=== PATIENT | female | born 1950 | race Caucasian/White ===

== ENCOUNTER → 2018-02-19 | Outpatient (CLI) | payer MEDICARE, OTHER ==
--- NOTE | 2018-02-20 09:20 | MR ---
EXAMINATION TYPE: MR lumbar spine wo con DATE OF EXAM: 02/19/2018 COMPARISON: Prior lumbar MRI 01/25/2013 HISTORY: Back pain, lumbar degenerative disc disease TECHNIQUE: Multiplanar, multisequence images of the lumbar spine were acquired. L1-L2: Posterior extension of endplate disc complex causes anterior mass effect on the thecal sac, mi ld to moderate central stenosis. L2-L3: Mild spinal stenosis due to posterior circumferential extension of endplate disc complex, bila teral foraminal encroachment due to lateral extension. There is some facet arthropathy change present . L3-L4: Facet arthropathy is present. No significant foraminal encroachment or spinal stenosis. Mild p osterior disc bulge causes slight anterior mass effect on the thecal sac. L4-L5: Posterior broad-based disc bulge causes mild anterior mass effect on the thecal sac. There is facet arthropathy change with hypertrophy ligamentum flavum encroaching on the lateral recesses, circ umferential extension of endplate disc complex encroaches on the right neural foramen. No significant spinal stenosis. L5-S1: Posterior extension of endplate disc complex is noted, there is posterior extension of disc he rniation posterior to the S1 segment in the right posterior paracentral location displacing the right S1 nerve root and causing mass effect on the anterior thecal sac. Circumferential extension of endpl ate disc complex encroaches somewhat on the neural foramen greater on the left. There is facet arthro timothy, no significant spinal stenosis. Lumbar segments are intact. No paraspinal masses are identified. Conus medullaris has a normal appe arance. There is an underlying scoliosis. Multilevel spondylosis with endplate discogenic marrow sign al changes noted, there is loss of disc height and signal compatible disc desiccation and degenerativ e disc disease, associated vacuum phenomenon present at L5-S1, L2-3 and L1-2. Minimal retrolisthesis grade 1 L2-3. IMPRESSION: Degenerative disc disease with disc herniation L5-S1, correlate for right S1 radiculopathy, interval finding. Multilevel foraminal encroachment, facet arthropathy and canal stenosis as described.
== END ==
LOC: RADMRIMAIN 15:18
PROVIDERS: ATTEND Psychiatry & Neurology Neurology
DX: M51.17 Intervertebral disc disorders with radiculopathy, lumbosacral region (principal); M46.86 Other specified inflammatory spondylopathies, lumbar region; M48.061 Spinal stenosis, lumbar region without neurogenic claudication
CPT/HCPCS: 72148

== ENCOUNTER → 2018-08-26 | Outpatient (CLI) | payer MEDICARE, OTHER ==
--- NOTE | 2018-08-30 13:46 | MM ---
Reason for exam: screening (asymptomatic). Last mammogram was performed 3 years and 6 months ago. History: Patient is postmenopausal. Family history of breast cancer in mother at age 70. Took hormonal contraceptives for 2 years beginning at age 19. MG Screening Mammo w CAD Bilateral CC, MLO, and XCCL view(s) were taken. Prior study comparison: March 09, 2015, bilateral MG screening mammo w CAD. September 02, 2012, bilateral digital screening mammo w/CAD. The breast tissue is heterogeneously dense. This may lower the sensitivity of mammography. There are benign-appearing bilateral calcifications. No suspicious abnormality. No significant changes when compared with prior studies. ASSESSMENT: Benign, BI-RAD 2 RECOMMENDATION: Routine screening mammogram of both breasts in 1 year.
== END | disposition home or self-care (01) ==
LOC: RADMAMWWP 15:50
PROVIDERS: ATTEND Family Medicine
DX: Z12.31 Encounter for screening mammogram for malignant neoplasm of breast (principal)
CPT/HCPCS: 77067

== ENCOUNTER → 2020-07-24 | Outpatient (CLI) | payer MEDICARE, OTHER ==
[2020-07-24 13:26] LABS: African American GFR (CKD) >90 (>60 ml/min/1.73 sqM); Blood Urea Nitrogen 17 mg/dL (7-17); Non-African American GFR(CKD) >90 (>60 ml/min/1.73 sqM)
--- NOTE | 2020-07-24 15:49 | CT ---
EXAMINATION TYPE: CT abdomen pelvis w con DATE OF EXAM: 07/24/2020 COMPARISON: NONE HISTORY: 70-year-old female Abdominal pain and vomiting. TECHNIQUE: Contiguous axial scanning of the abdomen and pelvis following administration of 100 ml Iso arabella 300 IV contrast. Delayed images through the kidneys and coronal/sagittal reconstructions perform ed. CT DLP: 1978.3 mGycm Automated exposure control for dose reduction was used. FINDINGS: Heart upper limits of normal in size. Moderate-sized hiatal hernia involving approximately half the stomach. Strandy atelectasis in the low er lungs. No focal liver lesion or biliary ductal dilatation. Portal venous system is patent. Gallbladder, adrenal glands, right kidney, spleen, and pancreas appear within normal limits. A couple hypodensities within the left kidney measuring 1.3 and 1.1 cm suggesting cysts. Symmetric up take and excretion of contrast from both kidneys. No dilated small bowel, free fluid, free air. No mesenteric or retroperitoneal lymphadenopathy. Normal appendix. Mild scattered stool. Sigmoid diverticulosis. No pericolonic inflammatory change. Bladder is collapsed. Uterus anteverted. Both ovaries are visualized. Pelvic fluid ligaments. No abno rmal fluid collection in the pelvis or pelvic lymphadenopathy. Bones: Mild degenerative change at the hips. Advanced degenerative change throughout the lumbar spine . Grade 1 retrolisthesis L2-L3 and grade 1 anterolisthesis L4-L5. IMPRESSION: 1. MODERATE SIZE HIATAL HERNIA INVOLVING APPROXIMATELY HALF THE STOMACH. CORRELATE TO IF THIS COUL D BE CONTRIBUTING TO THE PATIENT'S SYMPTOMS. 2. SIGMOID DIVERTICULOSIS WITHOUT ACUTE DIVERTICULITIS. 3. ADVANCED DEGENERATIVE CHANGES THROUGHOUT THE LUMBAR SPINE.
== END | disposition home or self-care (01) ==
LOC: RADCTMAIN 12:10
PROVIDERS: ATTEND Family Medicine
DX: K44.9 Diaphragmatic hernia without obstruction or gangrene (principal); K57.30 Diverticulosis of large intestine without perforation or abscess without bleeding; D50.9 Iron deficiency anemia, unspecified; Z53.20 Procedure and treatment not carried out because of patient's decision for unspecified reasons
CPT/HCPCS: 82565; 84520; 74177; 36415; Q9967 ×2

== ENCOUNTER 2020-11-23 10:19 | Emergency (ER) | payer MEDICARE, OTHER ==
[2020-11-23 10:27] VITALS: TEMP 98
--- NOTE | 2020-11-23 10:43 | ED ---
Fall HPI - General Chief Complaint: Fall Stated Complaint: Fall Time Seen by Provider: 11/23/20 10:20 Source: patient, EMS Mode of arrival: EMS Limitations: no limitations - History of Present Illness Initial Comments: 70-year-old female presents emergency from via EMS chief complaint trip and fall. Patient had a mechanical fall today. She did strike her head and there was no loss conscious he has mild headache refuses Tylenol. Patient states that she has no neck pain no extremity injuries no chest pain or shortness breath. Patient has no current blurred vision or any other associated symptoms at this time - Related Data Home Medications Medication Instructions Recorded Confirmed DULoxetine HCL 60 mg PO DAILY 10/06/15 10/26/15 Gabapentin 100 mg PO BID 10/06/15 10/26/15 Metoprolol Succinate [Toprol XL] 50 mg PO DAILY 10/06/15 10/26/15 Mirtazapine 15 mg PO DAILY 10/06/15 10/26/15 Simvastatin 40 mg PO DAILY 10/06/15 10/26/15 Previous Rx's Medication Instructions Recorded Clindamycin HCl 300 mg PO Q6HR #40 cap 10/26/15 Hydrocodone/Acetaminophen [[place] 1 tab PO Q6HR PRN #20 tab 10/26/15 5-325] Ibuprofen [Motrin] 600 mg PO Q8HR PRN #30 tab 10/26/15 Allergies Allergy/AdvReac Type Severity Reaction Status Date / Time No Known Allergies Allergy Verified 11/23/20 10:27 Review of Systems ROS Statement: Those systems with pertinent positive or pertinent negative responses have been documented in the HPI. ROS Other: All systems not noted in ROS Statement are negative. Past Medical History Past Medical History: Hyperlipidemia, Hypertension History of Any Multi-Drug Resistant Organisms: None Reported Past Surgical History: Tonsillectomy, Tubal Ligation Past Psychological History: Anxiety, Bipolar, Depression Smoking Status: Former smoker Past Alcohol Use History: None Reported Past Drug Use History: None Reported General Exam Limitations: no limitations General appearance: alert, in no apparent distress Head exam: Present: atraumatic, normocephalic. Absent: normal inspection (Small abrasion noted) Eye exam: Present: normal appearance, PERRL, EOMI. Absent: scleral icterus, conjunctival injection, periorbital swelling ENT exam: Present: normal exam, normal oropharynx, mucous membranes moist Neck exam: Present: normal inspection, full ROM. Absent: tenderness, lymphadenopathy Respiratory exam: Present: normal lung sounds bilaterally. Absent: respiratory distress, wheezes, rales, rhonchi, stridor Cardiovascular Exam: Present: regular rate, normal rhythm, normal heart sounds. Absent: systolic murmur, diastolic murmur, rubs, gallop, clicks Extremities exam: Present: normal inspection, full ROM, normal capillary refill. Absent: tenderness, pedal edema, joint swelling, calf tenderness Back exam: Present: full ROM. Absent: tenderness Neurological exam: Present: alert, oriented X3, CN II-XII intact, reflexes normal. Absent: motor sensory deficit Skin exam: Present: warm, dry, intact, normal color. Absent: rash Course Vital Signs 11/23/20 10:20 Temperature 98 F Pulse Rate 72 Respiratory 18 Rate Blood Pressure 132/78 O2 Sat by Pulse 96 Oximetry Medical Decision Making - Medical Decision Making CT is unremarkable. Patient mechanical fall no syncope. Patient we discharged in stable condition. Disposition Clinical Impression: Fall, Head injury Disposition: HOME SELF-CARE Condition: Stable Instructions (If sedation given, give patient instructions): Head Injury (ED) Additional Instructions: Please return to the Emergency Department if symptoms worsen or any other concerns. Is patient prescribed a controlled substance at d/c from ED?: No Referrals: Amanda Locke MD [Primary Care Provider] - 1-2 days Time of Disposition: 12:09
--- NOTE | 2020-11-23 11:50 | CT ---
EXAMINATION TYPE: CT brain geni santiago DATE OF EXAM: 11/23/2020 COMPARISON: None HISTORY: Fall, Confusion CT DLP: 1576.[address] of the brain was performed. The ventricles, basal cisterns and sulci overlying the cerebral convexities demonstrate mild enlargem ent. There is no evidence for intracranial hemorrhage or sulcal effacement. There is decreased attenuatio n about the periventricular white matter and deep white matter of both cerebral hemispheres, compatib le with chronic small vessel ischemia. No mass effects are seen. If symptoms persist consider MRI. Osseous calvarium is intact. IMPRESSION: 1. Age related atrophic and chronic small vessel ischemic change without acute intracranial process seen at this time. CT Cervical Spine: Unenhanced CT of the cervical spine was performed with bone and soft tissue window settings submitted . Coronal and sagittal reconstruction is obtained. There is normal alignment and prevertebral soft tissues. No evidence for acute cervical fracture . Scattered degenerative disc disease and spondylosis. Biapical scarring. IMPRESSION: 1. No evidence for acute fracture or subluxation of the cervical spine.
[2020-11-23 12:17] VITALS: BP 119/71; PULSE 65; RESP 19
== END 2020-11-23 12:11 | disposition home or self-care (01) ==
LOC: EC 10:19
DX: S09.90XA Unspecified injury of head, initial encounter (principal); I10 Essential (primary) hypertension; E78.5 Hyperlipidemia, unspecified; F41.9 Anxiety disorder, unspecified; F31.9 Bipolar disorder, unspecified; Z79.899 Other long term (current) drug therapy; Z87.891 Personal history of nicotine dependence; W01.0XXA Fall on same level from slipping, tripping and stumbling without subsequent striking against object, initial encounter
CPT/HCPCS: 70450; 72125; 99284

== ENCOUNTER → 2020-12-01 | Outpatient (CLI) | payer MEDICARE, OTHER ==
--- NOTE | 2020-12-01 10:37 | BD ---
EXAMINATION TYPE: Axial Bone Density DATE OF EXAM: 12/01/2020 COMPARISON: 03.09.2015 CLINICAL HISTORY: 70 YR OLD FEMALE.....ICD-10 CODE: M51.9, M79.605, E55.9, MULTIPLE DISORDERS Height: 63 Weight: 250 FRAX RISK QUESTIONS: Glucocorticoids (More than 3mos): YES (Ex: prednisone, prednisolone, methylprednisolone, dexamethasone, and hydrocortisone). RISK FACTORS HISTORY OF: Postmenopausal woman: YES, AT AGE 49 Lost more than 2 inches in height since high school: YES Frequent falls: YES Hyperparathyroidism: NO Adrenal Insufficiency: NO MEDICATIONS: Prednisone or other steroids: YES, IN THE PAST, FOR ABOUT A YR, INHALER Additional Medications: GABIPENTIN, BP MEDS, MELIXICAN, TORADOL, PAIN MEDS, MIRTAZAPINE, DULOXETINE, METFORMIN, STATIN FOR CHOLESTEROL, VIT D IN THE PAST, VITAMINS WHEN SHE REMEMBERS, EPIDURAL INJECTION S Additional History: PT IN A WHEELIE WALKER, WILL NOT USE IT PROPERLY FOR ME, ON SEAT PUSHING WITH HER FEET, LT LEG PAINFUL AND RT LEG BRUISED, LUMBAR SPINE HAS 3 BULGING DISCS, PT FELL, ARTHRITIS EXAM MEASUREMENTS: Bone mineral densitometry was performed using the [employer] System. Bone mineral density as measured about the Lumbar spine is: ----- L1-L4(G/cm2): 1.699 T Score Values are as follows: ----- L1: 4.9 ----- L2: 7.5 ----- L3: 5.2 ----- L4: 1.0 ----- L1-L4: 4.3 Bone mineral density has: Decreased -0.9% SINCE..... 03.09.2015 Bone mineral density about the R hip (g/cm2): 1.376 Bone mineral density about the L hip (g/cm2): 1.335 T Score values are as follows: -----R Neck: 1.8 -----L Neck: 1.3 -----R Total: 2.9 -----L Total: 2.6 Bone mineral density has: Decreased -0.5% SINCE.....03.09.2015 FRAX%s: THERE IS A 12.0% CHANCE FOR A MAJOR OSTEOPOROTIC FX AND A 0.3% FOR HIP......PROBABILITY FO R FX IN 10 YRS TIME IMPRESSION: Normal NOTE: T-SCORE=SD OF THE YOUNG ADULT MEAN.
--- NOTE | 2020-12-05 11:29 | MM ---
Reason for exam: screening (asymptomatic). Last mammogram was performed 2 years and 3 months ago. History: Patient is postmenopausal. Family history of breast cancer in mother at age 70. Took hormonal contraceptives for 2 years beginning at age 19. Physical Findings: A clinical breast exam by your physician is recommended on an annual basis and results should be correlated with mammographic findings. MG 3D Screening Mammo W/Cad Bilateral CC and MLO view(s) were taken. XCCL view(s) were taken of the left breast. Prior study comparison: August 26, 2018, bilateral MG screening mammo w CAD. March 09, 2015, bilateral MG screening mammo w CAD. There are scattered fibroglandular densities. Stable benign calcifications. There is no discrete abnormality. No significant changes when compared with prior studies. ASSESSMENT: Benign, BI-RAD 2 RECOMMENDATION: Routine screening mammogram of both breasts in 1 year.
== END | disposition home or self-care (01) ==
LOC: RADMAMWWP 08:53
PROVIDERS: ATTEND Family Medicine
DX: Z12.31 Encounter for screening mammogram for malignant neoplasm of breast (principal); Z80.3 Family history of malignant neoplasm of breast; Z78.0 Asymptomatic menopausal state
CPT/HCPCS: 77063; 77067; 77080

== ENCOUNTER 2023-09-28 09:44 | Emergency (ER) | payer MEDICARE, OTHER ==
[2023-09-28 10:10] VITALS: BP 100/66; PULSE 80; RESP 18; TEMP 97.5
--- NOTE | 2023-09-28 10:13 | ED ---
General Adult HPI - General Chief complaint: Skin/Abscess/Foreign Body Stated complaint: Rash on face, shoulder, back Time Seen by Provider: 09/28/23 09:54 Source: patient, RN notes reviewed Mode of arrival: ambulatory Limitations: no limitations - History of Present Illness Initial comments: 73-year-old female presents emergency department complaining of skin rash. Patient states that started several days ago. Patient was placed on steroid cream, Bactroban, doxycycline. Patient states she has sores on left side of her face, bilateral shoulder region. States that such as small bumps and increases in size there is increasing redness. She denies any difficulty swallowing no difficulty breathing no other complaints. - Related Data Home Medications Medication Instructions Recorded Confirmed DULoxetine HCL 60 mg PO DAILY 10/06/15 10/26/15 Gabapentin 100 mg PO BID 10/06/15 10/26/15 Metoprolol Succinate [Toprol XL] 50 mg PO DAILY 10/06/15 10/26/15 Mirtazapine 15 mg PO DAILY 10/06/15 10/26/15 Simvastatin 40 mg PO DAILY 10/06/15 10/26/15 Previous Rx's Medication Instructions Recorded Hydrocodone/Acetaminophen [[place] 1 tab PO Q6HR PRN #20 tab 10/26/15 5-325] Ibuprofen [Motrin] 600 mg PO Q8HR PRN #30 tab 10/26/15 clindamycin HCL [Clindamycin HCl] 300 mg PO Q6HR #40 cap 10/26/15 Cephalexin [Keflex] 500 mg PO Q6HR #40 cap 09/28/23 Sulfamethox-Tmp 800-160Mg [Bactrim 1 each PO Q12HR #20 tab 09/28/23 Ds] Allergies Allergy/AdvReac Type Severity Reaction Status Date / Time No Known Allergies Allergy Verified 09/28/23 09:55 Review of Systems ROS Statement: Those systems with pertinent positive or pertinent negative responses have been documented in the HPI. ROS Other: All systems not noted in ROS Statement are negative. Past Medical History Past Medical History: Hyperlipidemia, Hypertension History of Any Multi-Drug Resistant Organisms: None Reported Past Surgical History: Tonsillectomy, Tubal Ligation Past Psychological History: Anxiety, Bipolar, Depression Smoking Status: Former smoker Past Alcohol Use History: None Reported Past Drug Use History: None Reported General Exam Limitations: no limitations General appearance: alert, in no apparent distress Head exam: Present: atraumatic, normocephalic. Absent: normal inspection (Left forehead there are 3 erythematous sores noted) Eye exam: Present: normal appearance, PERRL, EOMI. Absent: scleral icterus, conjunctival injection, periorbital swelling ENT exam: Present: normal exam, mucous membranes moist Neck exam: Present: normal inspection, full ROM. Absent: tenderness, meningismus, lymphadenopathy Respiratory exam: Present: normal lung sounds bilaterally. Absent: respiratory distress, wheezes, rales, rhonchi, stridor Cardiovascular Exam: Present: regular rate, normal rhythm, normal heart sounds. Absent: systolic murmur, diastolic murmur, rubs, gallop, clicks GI/Abdominal exam: Present: soft, normal bowel sounds. Absent: distended, t enderness, guarding, rebound, rigid Skin exam: Present: other (Erythematous sores with central clearing noted on bilateral shoulders) Course Vital Signs 09/28/23 09:51 Temperature 97.5 F L Pulse Rate 80 Respiratory 18 Rate Blood Pressure 100/66 O2 Sat by Pulse 98 Oximetry Medical Decision Making - Medical Decision Making Was pt. sent in by a medical professional or institution (, PA, [employer], urgent care, hospital, or longterm...) When possible be specific @ -No Did you speak to anyone other than the patient for history (EMS, parent, family, police, friend...)? What history was obtained from this source @ -No Did you review nursing and triage notes (agree or disagree)? Why? @ -I reviewed and agree with nursing and triage notes Were old charts reviewed (outside hosp., previous admission, EMS record, old EKG, old radiological studies, urgent care reports/EKG's, longterm records)? Report findings @ -No old charts were reviewed Differential Diagnosis (chest pain, altered mental status, abdominal pain women, abdominal pain men, vaginal bleeding, weakness, fever, dyspnea, syncope, headache, dizziness, GI bleed, back pain, seizure, CVA, palpatations, mental health, musculoskeletal)? @ -[Cellulitis, ulcerations, allergic reaction, herpes zoster EKG interpreted by me (3pts min.). @ -None X-rays interpreted by me (1pt min.). @ -None done CT interpreted by me (1pt min.). @ -None done U/S interpreted by me (1pt. min.). @ -None done What testing was considered but not performed or refused? (CT, X-rays, U/S, labs)? Why? @ -None What meds were considered but not given or refused? Why? @ -None Did you discuss the management of the patient with other professionals (professionals i.e. Dr., PA, [employer], lab, RT, psych nurse, social sciences chair, high school foreign language tutor, teacher, deck officer, telephonic nurse case manager)? Give summary @ -No Was smoking cessation discussed for >3mins.? @ -No Was critical care preformed (if so, how long)? @ -No Were there social determinants of health that impacted care today? How? (Homelessness, low income, unemployed, alcoholism, drug addiction, transportation, low edu. Level, literacy, decrease access to med. care, fci, rehab)? @ -No Was there de-escalation of care discussed even if they declined (Discuss DNR or withdrawal of care, Hospice)? DNR status @ -No What co-morbidities impacted this encounter? (DM, HTN, Smoking, COPD, CAD, Cancer, CVA, ARF, Chemo, Hep., AIDS, mental health diagnosis, sleep apnea, morbid obesity)? @ -None Was patient admitted / discharged? Hospital course, mention meds given and route, prescriptions, significant lab abnormalities, going to OR and other pertinent info. @ -Discharge patient is having some sort of staph or strep infection patient was on doxycycline with no improvement. Patient was placed on Bactrim, Keflex will continue Bactroban cream. Patient has a follow-up appoint with PCP, dermatology. Undiagnosed new problem with uncertain prognosis? @ -No Drug Therapy requiring intensive monitoring for toxicity (Heparin, Nitro, Insulin, Cardizem)? @ -No Were any procedures done? @ -No Diagnosis/symptom? @ -Sores, cellulitis Acute, or Chronic, or Acute on Chronic? @ -Acute Uncomplicated (without systemic symptoms) or Complicated (systemic symptoms)? @ -Uncomplicated Side effects of treatment? @ -No Exacerbation, Progression, or Severe Exacerbation? @ -No Poses a threat to life or bodily function? How? (Chest pain, [place], PA, pneumonia, PE, COPD, DKA, ARF, appy, cholecystitis, CVA, Diverticulitis, Homicidal, Suicidal, threat to staff... and all critical care pts) @ -No Disposition Clinical Impression: Skin sore, Cellulitis Disposition: HOME SELF-CARE Condition: Stable Instructions (If sedation given, give patient instructions): Cellulitis (ED) Additional Instructions: Please return to the Emergency Department if symptoms worsen or any other concerns. Prescriptions: Sulfamethox-Tmp 800-160Mg [Bactrim Ds] 1 each PO Q12HR #20 tab Cephalexin [Keflex] 500 mg PO Q6HR #40 cap Is patient prescribed a controlled substance at d/c from ED?: No Referrals: Amanda Locke MD [Primary Care Provider] - 1-2 days Time of Disposition: 10:13
[2023-09-28] MEDS: ceFAZolin 1,000 MG VIAL (IM USE) IM STA (10:35)
== END 2023-09-28 10:40 | disposition home or self-care (01) ==
LOC: EC 09:44
DX: L98.9 Disorder of the skin and subcutaneous tissue, unspecified (principal); L03.114 Cellulitis of left upper limb; L03.113 Cellulitis of right upper limb; E78.5 Hyperlipidemia, unspecified; I10 Essential (primary) hypertension; F41.9 Anxiety disorder, unspecified; F31.9 Bipolar disorder, unspecified; Z87.891 Personal history of nicotine dependence; Z79.899 Other long term (current) drug therapy
CPT/HCPCS: 99282; 96372; J0690

== ENCOUNTER 2024-01-27 07:31 | Emergency (ER) | payer MEDICARE, OTHER ==
[2024-01-27 07:34] VITALS: RESP 18
--- NOTE | 2024-01-27 08:01 | ED ---
Eye Problem HPI - General Chief complaint: Eye Problems Stated complaint: can't see out of R eye Time Seen by Provider: 01/27/24 07:47 Source: patient, RN notes reviewed Mode of arrival: ambulatory Limitations: no limitations - History of Present Illness Initial comments: This is a 74-year-old female who presents to the emergency department for right eye pain. States that it started when she woke up yesterday morning. She is having difficulty seeing out of the eye as well as moving the eye due to the pain. She tried to call Dr. Bolton's office and they requested she go to their office that day for evaluation. However, patient states that she did not have a ride and was unable to make it. Symptoms have continued to persist. She has scratched her eye and her sleep before, and wonders if she may have done that again. chief complaint: eye pain - Related Data Home Medications Medication Instructions Recorded Confirmed DULoxetine HCL 60 mg PO DAILY 10/06/15 01/27/24 Metoprolol Succinate [Toprol XL] 50 mg PO DAILY 10/06/15 01/27/24 Mirtazapine 15 mg PO HS 10/06/15 01/27/24 Simvastatin 40 mg PO HS 10/06/15 01/27/24 Dupilumab [Dupixent Pen] 300 mg SQ Q14D 01/27/24 01/27/24 Ferrous Sulfate [Feosol] 325 mg PO DAILY 01/27/24 01/27/24 Gabapentin [Neurontin] 300 mg PO BID 01/27/24 01/27/24 Meloxicam [Mobic] 7.5 mg PO DAILY PRN 01/27/24 01/27/24 Mupirocin 2% Oint [Bactroban 2% 1 applic TOPICAL BID 01/27/24 01/27/24 Oint] Triamcinolone 0.025% Cream 1 applic TOPICAL BID 01/27/24 01/27/24 [Kenalog 0.025% Cream] metFORMIN HCL ER [Glucophage XR] 500 mg PO W/SUPPER 01/27/24 01/27/24 Allergies Allergy/AdvReac Type Severity Reaction Status Date / Time No Known Allergies Allergy Verified 01/27/24 11:20 Review of Systems ROS Statement: Those systems with pertinent positive or pertinent negative responses have been documented in the HPI. ROS Other: All systems not noted in ROS Statement are negative. Past Medical History Past Medical History: Hyperlipidemia, Hypertension History of Any Multi-Drug Resistant Organisms: None Reported Past Surgical History: Tonsillectomy, Tubal Ligation Past Psychological History: Anxiety, Bipolar, Depression Smoking Status: Former smoker Past Alcohol Use History: None Reported Past Drug Use History: None Reported General Exam Limitations: no limitations General appearance: alert, in distress Head exam: Present: atraumatic, normocephalic, normal inspection Eye exam: Present: PERRL, EOMI, other (Right conjunctival injection) Expanded Visual acuity (R) = 20/: 100 Visual acuity (L) = 20/: 100 IOP (R) in mmH IOP (L) in mmH IOP measured with: Tonopen Respiratory exam: Present: normal lung sounds bilaterally. Absent: respiratory distress, wheezes, rales, rhonchi, stridor Cardiovascular Exam: Present: regular rate, normal rhythm, normal heart sounds. Absent: systolic murmur, diastolic murmur, rubs, gallop, clicks Neurological exam: Present: alert, oriented X3, CN II-XII intact Psychiatric exam: Present: normal affect, normal mood Skin exam: Present: warm, dry, intact, normal color. Absent: rash Course Vital Signs 01/27/24 01/27/24 01/27/24 07:32 08:30 10:24 Temperature 97.9 F 98.1 F 98 F Pulse Rate 84 75 77 Respiratory 18 18 18 Rate Blood Pressure 140/86 129/80 131/86 O2 Sat by Pulse 95 95 95 Oximetry 01/27/24 11:41 Temperature 98 F Pulse Rate 71 Respiratory 18 Rate Blood Pressure 132/81 O2 Sat by Pulse 96 Oximetry Medical Decision Making - Medical Decision Making This is a 74 year old female who presents to the emergency department for right eye pain. Was pt. sent in by a medical professional or institution? @ -No Did you speak to anyone other than the patient for history? @ -No Did you review nursing and triage notes? @ -Yes, and I agree, it is accurate with regards to the patient's symptoms. Were old charts reviewed? @ -No Differential Diagnosis? @ -Differential Eye Pain: Conjuncitivitis (viral, bacterial, allergic), corneal abrasion, foreign body, iritis, uveitis, keratitis, acute angle closure glaucoma, this is not meant to be an all-inclusive list. EKG interpreted by me (3pts min.)? @ -Not obtained X-rays interpreted by me (1pt min.)? @ -Not obtained CT interpreted by me (1pt min.)? @ -CT scan of the orbits obtained. My interpretation identifies no evidence of an intraocular mass. U/S interpreted by me (1pt. min.)? @ -Not obtained What testing was considered but not performed? (CT, X-rays, U/S, labs)? Why? @ -None What meds were considered but not given? Why? @ -None Did you discuss the management of the patient with other professionals? @ -No Did you reconcile home meds? @ -No Was smoking cessation discussed for >3mins.? @ -No Was critical care preformed (if so, how long)? @ -No Were there social determinants of health that impacted care today? How? (Homelessness, low income, unemployed, alcoholism, drug addiction, transportation, low edu. Level, literacy, decrease access to med. care, fpc, rehab)? @ -Lack of transportation, making it difficult for her to follow-up with appointments. Was there de-escalation of care discussed even if they declined? (Discuss DNR or withdrawal of care, Hospice)? @ -No What co-morbidities impacted this encounter? (DM, HTN, Smoking, COPD, CAD, Cancer, CVA, Hep., AIDS, mental health diagnosis, sleep apnea, morbid obesity)? @ -HTN Was patient admitted / discharged? @ -Discharged. Lab work demonstrates a mildly elevated lactic acid and was otherwise unremarkable. Patient had significant relief in symptoms with topical proparacaine. Intraocular pressure in the right eye was 9 and the left eye was 8. Visual acuity was 20/100 bilaterally, not any worse in the affected eye on the right. Patient states that she only wears reading glasses but does not wear glasses otherwise. We did obtain a CT scan of the orbits to evaluate for any signs of orbital cellulitis or other acute process. 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 She has a small calcification in the right optic disc. There is no evidence for cellulitis or inflammatory process. Fluorescein staining performed demonstrating a fairly large corneal abrasion on the right. There were not any michelle or white corneal lesions. Hypopyon was not present. Tetanus vaccine is up-to-date. Patient was trying to contact her ophthalmology office to get an appointment as soon as possible, preferably today. However, despite multiple attempts by nursing staff and the patient, we were unable to reach them. I did offer to keep the patient in the emergency department so we could continue trying, however she requested discharge home. States that she will continue trying to contact them herself. She did confirm with her neighbor that she would be able to take her to the appointment today or tomorrow and I did stress the importance with the patient of very close follow-up and she expresses understanding. Undiagnosed new problem with uncertain prognosis? @ -None Drug Therapy requiring intensive monitoring for toxicity (Heparin, Nitro, Ins ulin, Cardizem)? @ -None Were any procedures done? @ -None Diagnosis/symptom? @ -Corneal abrasion Acute, or Chronic, or Acute on Chronic? @ -Acute Uncomplicated (without systemic symptoms) or Complicated (systemic symptoms)? @ -Uncomplicated Side effects of treatment? @ -None Exacerbation, Progression, or Severe Exacerbation] @ -Not applicable Poses a threat to life or bodily function? @ -Unlikely Return precautions reviewed in depth, the patient is instructed to return to the emergency department with any new, worsening, or concerning symptoms. Patient verbalized understanding. This case was discussed in detail with the attending ED physician, Dr. Garcia. Presentation, findings, and treatment plan discussed in detail as well. - Lab Data Result diagrams: 01/27/24 08:16 01/27/24 08:16 Lab Results 01/27/24 01/27/24 01/27/24 Range/Units 08:16 08:16 08:16 WBC 5.5 (3.8-10.6) k/uL RBC 4.07 (3.80-5.40) m/uL Hgb 12.0 (11.4-16.0) gm/dL Hct 39.3 (34.0-46.0) % MCV 96.6 (80.0-100.0) fL MCH 29.4 (25.0-35.0) pg MCHC 30.5 L (31.0-37.0) g/dL RDW 12.7 (11.5-15.5) % Plt Count 264 (150-450) k/uL MPV 8.3 Neutrophils % 65 % Lymphocytes % 21 % Monocytes % 9 % Eosinophils % 4 % Basophils % 1 % Neutrophils # 3.5 (1.3-7.7) k/uL Lymphocytes # 1.2 (1.0-4.8) k/uL Monocytes # 0.5 (0-1.0) k/uL Eosinophils # 0.2 (0-0.7) k/uL Basophils # 0.0 (0-0.2) k/uL Sodium 141 (137-145) mmol/L Potassium 3.8 (3.5-5.1) mmol/L Chloride 104 (98-107) mmol/L Carbon Dioxide 27 (22-30) mmol/L Anion Gap 10 mmol/L BUN 21 H (7-17) mg/dL Creatinine 0.50 L (0.52-1.04) mg/dL Est GFR (CKD-EPI)AfAm >90 (>60 ml/min/1.73 sqM) Est GFR (CKD-EPI)NonAf >90 (>60 ml/min/1.73 sqM) Glucose 117 H (74-99) mg/dL Lactic Ac Sepsis Rflx Plasma Lactic Acid Tay 2.5 H* (0.7-2.0) mmol/L Calcium 9.4 (8.4-10.2) mg/dL Total Bilirubin 0.5 (0.2-1.3) mg/dL AST 24 (14-36) U/L ALT 23 (4-34) U/L Alkaline Phosphatase 82 (38-126) U/L C-Reactive Protein 0.6 (<1.0) mg/dL Total Protein 6.1 L (6.3-8.2) g/dL Albumin 3.9 (3.5-5.0) g/dL 01/27/24 Range/Units 09:13 WBC (3.8-10.6) k/uL RBC (3.80-5.40) m/uL Hgb (11.4-16.0) gm/dL Hct (34.0-46.0) % MCV (80.0-100.0) fL MCH (25.0-35.0) pg MCHC (31.0-37.0) g/dL RDW (11.5-15.5) % Plt Count (150-450) k/uL MPV Neutrophils % % Lymphocytes % % Monocytes % % Eosinophils % % Basophils % % Neutrophils # (1.3-7.7) k/uL Lymphocytes # (1.0-4.8) k/uL Monocytes # (0-1.0) k/uL Eosinophils # (0-0.7) k/uL Basophils # (0-0.2) k/uL Sodium (137-145) mmol/L Potassium (3.5-5.1) mmol/L Chloride (98-107) mmol/L Carbon Dioxide (22-30) mmol/L Anion Gap mmol/L BUN (7-17) mg/dL Creatinine (0.52-1.04) mg/dL Est GFR (CKD-EPI)AfAm (>60 ml/min/1.73 sqM) Est GFR (CKD-EPI)NonAf (>60 ml/min/1.73 sqM) Glucose (74-99) mg/dL Lactic Ac Sepsis Rflx Y Plasma Lactic Acid Tay (0.7-2.0) mmol/L Calcium (8.4-10.2) mg/dL Total Bilirubin (0.2-1.3) mg/dL AST (14-36) U/L ALT (4-34) U/L Alkaline Phosphatase (38-126) U/L C-Reactive Protein (<1.0) mg/dL Total Protein (6.3-8.2) g/dL Albumin (3.5-5.0) g/dL - Radiology Data Radiology results: report reviewed, image reviewed Disposition Clinical Impression: Right corneal abrasion Disposition: HOME SELF-CARE Instructions (If sedation given, give patient instructions): Corneal Abrasion (ED) Additional Instructions: Return to the emergency department with any new, worsening, or concerning symptoms. Apply the ciprofloxacin eyedrops as 2 drops to the left eye every 6 hours for 5 days. You can apply the ketorolac eyedrops provided as 1 drop to the right eye every 6 hours as needed for pain control. Make sure you keep calling Dr. Bolton's office. You must be seen either today or tomorrow. Is patient prescribed a controlled substance at d/c from ED?: No Referrals: Amanda Locke MD [Primary Care Provider] - 1-2 days Ortiz Bolton MD [STAFF PHYSICIAN] - 1-2 days Time of Disposition: 11:30
[2024-01-27] MEDS: PROPARACAINE 0.5% OPHTH DROPS 15 ML BTL RIGHT EYE STA (08:28)
[2024-01-27] MEDS: MORPHINE SULFATE 4 MG/ML SYRINGE IVP STA (08:34)
[2024-01-27] MEDS: KETOROLAC 15 MG/ML 1 ML VIAL IVP STA (08:34)
[2024-01-27 08:51] LABS: Basophils % (A) 1 %; Eosinophils # (A) 0.2 k/uL (0-0.7); Eosinophils % (A) 4 %; HCT 39.3 % (34.0-46.0); Lymphocytes # (A) 1.2 k/uL (1.0-4.8); Lymphocytes % (A) 21 %; MCH 29.4 pg (25.0-35.0); MCHC 30.5 g/dL (31.0-37.0); MCV 96.6 fL (80.0-100.0); Mean Platelet Volume 8.3; Monocytes # (A) 0.5 k/uL (0-1.0); Monocytes % (A) 9 %; Neutrophils # (A) 3.5 k/uL (1.3-7.7); Neutrophils % (A) 65 %; Platelet Count 264 k/uL (150-450); RBC 4.07 m/uL (3.80-5.40); RDW 12.7 % (11.5-15.5); WBC 5.5 k/uL (3.8-10.6)
[2024-01-27] MEDS: FLUORESCEIN STRIPS 1 MG STRIP RIGHT EYE ONE (09:13)
[2024-01-27] MEDS: SODIUM CHLORIDE 0.9% 500 ML 500 ML IV STA (09:39)
[2024-01-27 10:00] LABS: ALT 23 U/L (4-34); AST 24 U/L (14-36); African American GFR (CKD) >90 (>60 ml/min/1.73 sqM); Albumin 3.9 g/dL (3.5-5.0); Alkaline Phosphatase 82 U/L (38-126); Anion Gap 10 mmol/L; Blood Urea Nitrogen 21 mg/dL (7-17); C Reactive Protein 0.6 mg/dL (<1.0); Calcium 9.4 mg/dL (8.4-10.2); Carbon Dioxide 27 mmol/L (22-30); Chloride 104 mmol/L (98-107); Glucose 117 mg/dL (74-99); Non-African American GFR(CKD) >90 (>60 ml/min/1.73 sqM); Potassium 3.8 mmol/L (3.5-5.1); Sodium 141 mmol/L (137-145); Total Bilirubin 0.5 mg/dL (0.2-1.3); Total Protein 6.1 g/dL (6.3-8.2)
[2024-01-27] MEDS: KETOROLAC 0.5% OPHTH DROPS 5 ML BTL RIGHT EYE STA (10:01)
[2024-01-27] MEDS: CIPROFLOXACIN 0.3% OPHTH SOLN 5 ML BTL RIGHT EYE STA (10:01)
[2024-01-27 10:25] VITALS: TEMP 98
--- NOTE | 2024-01-27 10:54 | CT ---
EXAMINATION TYPE: CT orbits w con DATE OF EXAM: 01/27/2024 COMPARISON: None HISTORY: Right eye pain CT DLP: 689.7 mGycm Automated exposure control for dose reduction was used. CONTRAST: Performed with IV Contrast, patient injected with 100 mL of Isovue 300. Contrast enhanced CT of the o rbits is performed in the axial, coronal and sagittal planes. FINDINGS: There is evidence of bilateral exophthalmus doses. Mild muscular belly thickening of the medial and l ateral recti musculature. No evidence for retroconal mass. Small focal increased density is noted in the region of the right optic disc. Optic nerves are symmetric bilaterally without mass or pathologic enhancement. No evidence for cellulitis or inflammatory process. No intraconal mass. Visualized port ions of the brain are within normal limits. Paranasal sinuses as visualized are well aerated as are t he mastoid air cells. IMPRESSION: 1. Correlate for thyroid ophthalmopathy. 2. Small focal calcification right optic disc. 3. No intra or extraconal mass seen.
[2024-01-27] MEDS: ACET/COD 300 MG/30 MG STARTER PACK 6 TAB BTL PO STA (11:35)
[2024-01-27 11:42] VITALS: BP 132/81; PULSE 71
== END 2024-01-27 11:43 | disposition home or self-care (01) ==
LOC: EC 07:31
DX: S05.01XA Injury of conjunctiva and corneal abrasion without foreign body, right eye, initial encounter (principal); Z87.891 Personal history of nicotine dependence; X58.XXXA Exposure to other specified factors, initial encounter
CPT/HCPCS: 36415; 80053; 83605; 85025; 86140; 70481; 99284; 96374; 96375; J2270; J1885; Q9967